=== PATIENT | male | born 1955 | race Caucasian/White ===

== ENCOUNTER → 2020-09-10 15:11 | Outpatient (BNVA) | payer MEDICAID, SELFPAY | PROVIDERS: PCP Internal Medicine; Visit Provider Surgery Vascular Surgery | DX: I83.12 Varicose veins of left lower extremity with inflammation (principal) | CPT/HCPCS: 99202 ==

== ENCOUNTER 2021-01-02 10:58 | Outpatient (REF) | payer MEDICAID, SELFPAY ==
--- NOTE | ~2021-01-02 | US_ITS ---
EXAMINATION: RIGHT and LEFT LOWER EXTREMITY VENOUS ULTRASOUND (Reflux Exam) CLINICAL INDICATION: leg pain and varicose veins. COMPARISON: None. TECHNIQUE: Color flow triplex imaging and compression Doppler was performed to evaluate both the deep and the superficial systems bilaterally. To evaluate the superficial system, the examination was performed in the upright position. Color-flow Doppler ultrasound and compression ultrasound were utilized. In addition, maneuvers were utilized to demonstrate reflux. FINDINGS: 1. DEEP VENOUS ULTRASOUND OF THE RIGHT LOWER EXTREMITY: Respiratory variation, normal compression and augmented flow are noted in the right common femoral vein as well as the right popliteal vein and there is no evidence of deep venous thrombosis at these locations. There is no evidence of reflux in the deep system in either the common femoral vein or the popliteal vein. There is no evidence of a Christian's cyst. 2. SUPERFICIAL ULTRASOUND WITH DOPPLER OF RIGHT LOWER EXTREMITY: The right great saphenous vein at the saphenofemoral junction measures 5 mm, at the mid thigh 3 mm, [id number] 2 mm, [id number] 3 mm, at mid calf 3 mm and at the ankle measures 2 mm. There is no reflux demonstrated in the right great saphenous vein. The right small saphenous vein measures 1 mm and shows no reflux. There is a associate software engineer in the mid thigh that measures 2 mm and does not demonstrate reflux. There is a varicosity in the proximal calf that measures 3 mm and does not demonstrate reflux. 3. DEEP VENOUS ULTRASOUND OF THE LEFT LOWER EXTREMITY: Respiratory variation, normal compression and augmented flow are noted in the left common femoral vein as well as the left popliteal vein and there is no evidence of deep venous thrombosis at these locations. There is no evidence of reflux in the deep system in either the common femoral vein or the popliteal vein. . There is no evidence of a Christian's cyst. 4. SUPERFICIAL ULTRASOUND WITH DOPPLER OF LEFT LOWER EXTREMITY: Left great saphenous vein at the saphenofemoral junction measures 4 mm, at the mid thigh 1 mm, and at the ankle measures 2 mm. The remainder of the left greater saphenous vein is not visualized. There is no reflux demonstrated in the left great saphenous vein. The left small saphenous vein measures 3 to 4 mm and does not demonstrate reflux. There is a varicosity in the proximal thigh that measures 3 mm and does not demonstrate reflux. US/US venous duplex LE BI IMPRESSION: 1. No evidence of reflux or thrombus in the common femoral veins or popliteal veins bilaterally. 2. No saphenous vein reflux. The left greater saphenous vein from above the knee to the mid calf is not visualized.
== END 2021-01-02 10:59 | disposition home or self-care (01) ==
LOC: HO.US 10:58
PROVIDERS: Visit Provider Surgery Vascular Surgery
DX: I83.12 Varicose veins of left lower extremity with inflammation (principal); I83.893 Varicose veins of bilateral lower extremities with other complications
CPT/HCPCS: 93970

== ENCOUNTER → 2021-01-16 14:01 | Outpatient (BNVA) | payer MEDICAID, SELFPAY | PROVIDERS: PCP Internal Medicine; Visit Provider Surgery Vascular Surgery | DX: I83.12 Varicose veins of left lower extremity with inflammation (principal) | CPT/HCPCS: 99212 ==

== ENCOUNTER 2023-06-03 13:55 | Emergency (ER) | payer MEDICARE, MEDICAID, OTHER, SELFPAY ==
[2023-06-03 13:58] VITALS: BP 198/98; PULSE 122; RESP 18; TEMP 36.6; O2SAT 97; BMI 31.6
--- NOTE | 2023-06-03 13:59 | ED.GENADULT ---
HPI - General Adult General Chief complaint: General Medical Stated complaint: dental mouth pain Time Seen by Provider: 06/03/23 21:18 Source: patient Mode of arrival: ambulatory Limitations: no limitations History of Present Illness HPI narrative: Patient had molar tooth extraction in 02/19 in [place] since then has problem when chewing has often tongue bite. Supposed to get bridge/implants but could not get it came here for frequent tongue bites because of missing teeth no chest pain or shortness of breath patient missed his blood pressure medicine earlier when he arrived in the ER blood pressure was elevated which improved after he took his medicine labs were done which are stable patient denied any chest pain Related Data Home Medications Medication Instructions Recorded Confirmed acetaminophen 650 mg/20.3 mL oral 650 mg PO Q6H PRN 09/10/20 solution albuterol sulfate 90 mcg/actuation 2 puff inhalation Q6H PRN 09/10/20 aerosol inhaler aspirin 81 mg tablet,delayed 81 mg PO DAILY 09/10/20 release melatonin 5 mg tablet 5 mg PO BEDTIME PRN 09/10/20 metoprolol succinate 50 mg 50 mg PO DAILY 09/10/20 tablet,extended release 24 hr sertraline 50 mg tablet 50 mg PO DAILY 09/10/20 Previous Rx's Medication Instructions Recorded ibuprofen 600 mg tablet 600 mg PO Q6H PRN fever or pain 06/03/23 #30 tabs Allergies Allergy/AdvReac Type Severity Reaction Status Date / Time Penicillins [PENICILLINS] Allergy Unknown UNKNOWN Verified 01/16/21 14:01 Review of Systems Review of Systems: Yes all other systems are reviewed and are negative PMFSH Past Medical History Surgical History Hx of knee surgery Social History Social History Alcohol intake: never Smoked in Last 30 Days: No Use of substances other than those prescribed or required for medical reasons: No Advance Directives: No Advance Directives Information Provided: No Physical Exam ED Vital Signs: Vital Signs - 24 hr 06/03/23 13:58 06/03/23 18:48 06/03/23 21:42 Temperature 98 F 99.3 F Pulse Rate 122 H 88 78 Respiratory Rate 18 18 18 Blood Pressure 198/98 H 182/89 H 155/88 H Pulse Oximetry 97 98 97 Oxygen Delivery Method Room Air Room Air Room Air BMI result Body Mass Index 31.6 Appearance: Alert. Oriented X3. No acute distress. ENT: Pharynx normal. Oral Mucosa moist multiple missing teeth gum line no tongue is normal Neck: Normal inspection. Neck supple. CVS: Normal heart rate and rhythm. Pulses normal. Respiratory: No respiratory distress. Equal air entry bilateral, no wheezing/rales/rhonchi Abdomen: Soft and nontender. Bowel sounds are present, no mass palpable, no CVA tenderness Skin: Skin warm and dry. Normal skin color. Normal skin turgor. Extremities: No lower extremity edema. No calf tenderness Neuro: Oriented X 3. Course Course Course Narrative: This is a rapid medical exam: Additional HPI, ROS, PE not included below will be deferred to primary provider. Patient is a 67-year-old male presenting to the ED with complaint of pain to the roof of his mouth and tongue for 3 days. States the roof of his mouth feels inflamed and he bit his tongue today. Reports recent tooth extraction by dentist. Denies eating any hot or spice foods. No erythema or edema noted in triage. BP and HR elevated in triage. Takes lisinopril and metoprolol, did not take them yet today. Plan: EKG for tachy/HTN, basic labs Medications Administered Discontinued Medications Generic Name Dose Route Start Last Admin Trade Name Marcelo PRN Reason Stop Dose Admin Tramadol HCl 50 mg 06/03/23 21:33 06/03/23 21:49 Tramadol Hcl 50 Mg Tablet PO 06/03/23 21:34 50 mg ONCE ONE Administration Medical Decision Making Medical Decision Making [facility] Narrative: Patient with frequent tongue bites from missing teeth will give him pain medication advised to follow with dentist Lab Data [facility] Lab Attestation statement: I reviewed the patient's lab results. 06/03/23 14:21 06/03/23 14:21 Labs: Lab Results 06/03/23 06/03/23 Range/Units 14:21 17:19 WBC 5.0 (4.8-10.8) X10*3/uL RBC 4.50 L (4.60-5.80) X10*6/uL Hgb 13.8 L (14.0-18.0) g/dl Hct 39.8 L (42.0-52.0) % MCV 88.4 (80.0-98.0) fL MCH 30.7 (27.0-33.0) pg MCHC 34.7 (31.0-36.0) g/dl RDW 12.4 (11.0-16.0) % Plt Count 262 (160-400) X10*3/uL MPV 9.8 (9.4-12.4) fL Immature Gran % (Auto) 0.2 (0.0-0.4) % Neut % (Auto) 53.7 (45-73) % Lymph % (Auto) 31.1 (20-40) % Arroyo % (Auto) 8.8 (2-11) % Eos % (Auto) 5.0 H (0-4) % Baso % (Auto) 1.2 (0-2) % Lymph # (Auto) 1.6 (1.2-4.9) X10*3/uL [place] # (Auto) 0.4 (0.1-1.2) X10*3/uL Eos # (Auto) 0.3 (0.0-0.4) X10*3/uL Baso # (Auto) 0.1 (0.0-0.2) X10*3/uL Abs Immat Gran (auto) 0.01 (0.00-0.03) X10*3/uL Absolute Neuts (auto) 2.7 (2.0-8.3) x10*3/uL Absolute Nucleated RBC 0.000 (0.0-0.012) X10*3/uL Nucleated RBC % (auto) 0.0 (0.0-0.2) /100WBC Sodium 141 (135-145) mmol/L Potassium 3.5 (3.3-5.1) mmol/L Chloride 106 (96-108) mmol/L Carbon Dioxide 21 L (22-29) mmol/L Anion Gap 18 (12-20) BUN 16 (9-16) mg/dL Creatinine 1.11 (0.5-1.4) mg/dL Estim Creat Clear Calc 77.5 Estimated GFR > 60 Random Glucose 144 H (60-115) mg/dL Calcium 9.6 (8.4-10.2) mg/dL Total Bilirubin 0.5 (0.0-1.0) mg/dL AST 34 (5-37) U/L ALT 41 H (0-40) U/L Alkaline Phosphatase 73 (39-117) U/L Troponin I High Sens 44.0 H 48.2 H (<3.5-35.0) ng/L Total Protein 7.4 (6.5-8.0) g/dL Albumin 3.8 (3.5-5.0) g/dL Independent Interpretation I performed an independent interpretation of an: EKG Interpretation: Sinus tachycardia [address]-T changes no acute ischemia Discharge Plan Discharge Clinical Impression: Chronic dental pain Patient Disposition: Home, Self-Care Instructions: Toothache (ED) Additional Instructions: follow-up with dentist for further management including tooth implant/bridge Ibuprofen for pain seguimiento con el dentista para un tratamiento adicional, incluido el implante/narayan dental ibuprofeno para el dolor Prescriptions: New ibuprofen 600 mg tablet 600 mg PO Q6H PRN (Reason: fever or pain) Qty: 30 0RF Referrals: [facility] [Outside] - 1 week Interventions: ED Discharge Assessment Last Done: 06/03/23 21:59 Discharge Date/Time: 06/03/23 22:06 Print Language: [place]
[2023-06-03 14:27] LABS: Basophils Absolute Auto 0.1 X10*3/uL (0.0-0.2); Basophils Percent Auto 1.2 % (0-2); Eosinophils Absolute Auto 0.3 X10*3/uL (0.0-0.4); Hematocrit 39.8 % (42.0-52.0); Hemoglobin 13.8 g/dl (14.0-18.0); Imm Gran Abs Auto 0.01 X10*3/uL (0.00-0.03); Imm Gran Pct Auto 0.2 % (0.0-0.4); Lymphocytes Absolute Auto 1.6 X10*3/uL (1.2-4.9); Lymphocytes Percent Auto 31.1 % (20-40); MANUAL DIFF FLAG NO; Mean Corpuscular HGB Conc 34.7 g/dl (31.0-36.0); Mean Corpuscular Hemoglobin 30.7 pg (27.0-33.0); Mean Corpuscular Volume 88.4 fL (80.0-98.0); Mean Platelet Volume 9.8 fL (9.4-12.4); Monocytes Absolute Auto 0.4 X10*3/uL (0.1-1.2); Monocytes Percent Auto 8.8 % (2-11); Neutrophils Absolute Auto 2.7 x10*3/uL (2.0-8.3); Neutrophils Percent Auto 53.7 % (45-73); Platelet Count 262 X10*3/uL (160-400); Red Cell Distribution Width 12.4 % (11.0-16.0)
[2023-06-03 14:40] LABS: Alanine Aminotransferase 41 U/L (0-40); Albumin Level 3.8 g/dL (3.5-5.0); Alkaline Phosphatase 73 U/L (39-117); Anion Gap 18 (12-20); Aspartate Amino Transferase 34 U/L (5-37); Bilirubin Total 0.5 mg/dL (0.0-1.0); Blood Urea Nitrogen 16 mg/dL (9-16); Calcium 9.6 mg/dL (8.4-10.2); Carbon Dioxide 21 mmol/L (22-29); Chloride 106 mmol/L (96-108); Creatinine Clr Calc Pharmacy 77.5; Estimated Glomerular Filt Rate > 60; Glucose Random 144 mg/dL (60-115); Potassium 3.5 mmol/L (3.3-5.1); Sodium 141 mmol/L (135-145); Total Protein 7.4 g/dL (6.5-8.0)
[2023-06-03 18:48] VITALS: BP 182/89; PULSE 88; RESP 18; TEMP 37.4; O2SAT 98
--- NOTE | 2023-06-03 21:37 | PC.NURSE ---
Pt A&Ox4, ambulated independently with steady gait, reports 8/10 mouth pain r/t having upper tooth extractions in January and now reporting frequent biting of tongue and mouth swelling. Pt denies CP, SOB or palpitations, reports being med compliant with BP med.
[2023-06-03 21:42] VITALS: BP 155/88; PULSE 78; RESP 18; O2SAT 97
== END 2023-06-03 22:06 | disposition home or self-care (01) ==
PROVIDERS: Registered Nurse Emergency; Emergency Provider Internal Medicine; PCP Internal Medicine
DX: K08.89 Other specified disorders of teeth and supporting structures (principal); I10 Essential (primary) hypertension; Z79.82 Long term (current) use of aspirin; Z79.899 Other long term (current) drug therapy
CPT/HCPCS: 36415; 80053; 84484; 85025; 93005; 99283; 99285

== ENCOUNTER 2023-06-15 11:48 | Outpatient (REF) | payer MEDICARE, MEDICAID, SELFPAY ==
[2023-06-15 13:57] LABS: Estimated Average Glucose 105 mg/dL; Hemoglobin A1c % 5.3 % (<6.0)
[2023-06-15 14:14] LABS: Alanine Aminotransferase 54 U/L (0-40); Albumin Level 4.1 g/dL (3.5-5.0); Alkaline Phosphatase 82 U/L (39-117); Anion Gap 16 (12-20); Aspartate Amino Transferase 36 U/L (5-37); Bilirubin Total 0.7 mg/dL (0.0-1.0); Blood Urea Nitrogen 15 mg/dL (9-16); Calcium 9.7 mg/dL (8.4-10.2); Carbon Dioxide 24 mmol/L (22-29); Chloride 104 mmol/L (96-108); Cholesterol 127 mg/dL (<200); Estimated Glomerular Filt Rate > 60; Glucose Random 99 mg/dL (60-115); HDL Cholesterol 34 mg/dL (>40); LDL Cholesterol Calculated 64 mg/dL (<100); Sodium 140 mmol/L (135-145); Total Protein 8.2 g/dL (6.5-8.0); Triglycerides 149 mg/dL (<150)
[2023-06-15 14:29] LABS: TSH reflex Free T4 1.62 uIU/mL (0.32-4.0)
[2023-06-15 15:14] LABS: Creatinine Urine 191.68 mg/dL; Microalbumin Urine < 5.0 mg/L
== END 2023-06-15 11:49 | disposition home or self-care (01) ==
LOC: HO.HHCL 11:48
PROVIDERS: Visit Provider Emergency Medicine
DX: I10 Essential (primary) hypertension (principal)
CPT/HCPCS: 36415; 80053; 80061; 82043; 82570; 83036; 84443